=== PATIENT | female | born 1990 | race Caucasian/White ===

== ENCOUNTER 2020-11-10 14:37 | Outpatient (REF) | payer MEDICAID, SELFPAY ==
--- NOTE | ~2020-11-10 | XR_ITS ---
EXAMINATION: XR FOOT, LEFT CLINICAL INFORMATION: Left fifth toe bruising. COMPARISON: None TECHNIQUE: AP, lateral, and oblique views of the left foot. FINDINGS: The bones and soft tissues are normal. No fracture. Alignment is anatomic. Joint spaces are maintained. XR/XR foot LT min 3V IMPRESSION: Normal left foot.
== END 2020-11-10 14:38 | disposition home or self-care (01) ==
LOC: HO.XRAY 14:37
PROVIDERS: Absent Provider Internal Medicine; PCP Internal Medicine; Visit Provider Emergency Medicine
DX: M79.675 Pain in left toe(s) (principal)
CPT/HCPCS: 73630